=== PATIENT | male | born 1970 | race Caucasian/White ===

== ENCOUNTER 2021-10-03 17:10 | Emergency (ER) | payer MEDICARE ==
[~2021-10-03] VITALS: Ht 175.3 cm; Wt 104.3 kg
== END 2021-10-06 14:40 | disposition home or self-care (01) ==
LOC: ED 17:10
DX: F32.3 Major depressive disorder, single episode, severe with psychotic features (principal); F43.20 Adjustment disorder, unspecified; F29 Unspecified psychosis not due to a substance or known physiological condition; I10 Essential (primary) hypertension; E11.9 Type 2 diabetes mellitus without complications; Z88.8 Allergy status to other drugs, medicaments and biological substances
CPT/HCPCS: 36415; 80053; 81001; 84443; 85025; 87502; C9803; G0480; U0003

== ENCOUNTER 2021-10-09 14:35 | Emergency (ER) | payer MEDICARE, OTHER ==
[~2021-10-09] VITALS: Ht 175.3 cm; Wt 90.6 kg
--- NOTE | ~2021-10-09 | EKG ---
[facility] [address] [facility] [place], [place] [address] Draft EK completed, results pending confirmation PATIENT NAME: VINICIUS SINGH Electrocardiogram DATE OF : 70 PHYSICIAN: PRELIMINARY REPORT #: [id number] REPORT IS CONFIDENTIAL AND NOT TO BE RELEASED WITHOUT AUTHORIZATION
--- OUTSIDE RECORDS SUMMARY | 2021-10-09 14:42 | XMS ---
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 Gay VISIT COUNT (12 MO.) 2 [facility] TOTAL 2 NOTE: Visits indicate total known visits. ED/UCC VISIT TRACKING (12 MO.) 10/09/2021 14:35 [facility] Rm OR TYPE: Emergency COMPLAINT: - CHEST PAIN 10/03/2021 17:11 [facility] Rm OR TYPE: Emergency COMPLAINT: - MEDICAL CLEARANCE DIAGNOSES: - Type 2 diabetes mellitus without complications - Suicidal ideations - Allergy status to other drugs, medicaments and biological substances - Essential (primary) hypertension INPATIENT VISIT TRACKING (12 MO.) No inpatient visits to display in this time frame [email or web address]
== END 2021-10-09 18:47 | disposition home or self-care (01) ==
LOC: ED 14:35
DX: F15.10 Other stimulant abuse, uncomplicated (principal); I10 Essential (primary) hypertension; E11.9 Type 2 diabetes mellitus without complications; Z89.512 Acquired absence of left leg below knee; Z89.511 Acquired absence of right leg below knee; Z88.1 Allergy status to other antibiotic agents; Z20.822 Contact with and (suspected) exposure to COVID-19
CPT/HCPCS: 36415; 70450; 71045; 80053; 81001; 84484; 85025; 85610; 85730; 87502; 93005; 93010; 96361; 96374; 99285-25; C9803; G0480; J2310; J7030; U0003